=== PATIENT | female | born 2000 | race African-American/Black ===

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

== ENCOUNTER 2024-05-03 10:14 | Inpatient (IN) ==
[~2024-05-03 10:14] MED LIST: HYDROmorphone 1 MG/1 ML SYRINGE IV SLOW PU PRN; NS 0.45% 1000 ml BAG 1,000 ML IV SCH; Naloxone 0.4 mg VIAL 0.4 mg/ml 1 ml VIAL IV PRN
[2024-05-03] MEDS ORDERED: Heparin 5000 UNITS/ML 1 mL VIAL ONE (10:37)
[2024-05-03] MEDS ORDERED: Scopolamine 1 mg/72hr PATCH ONE (10:37)
[2024-05-03] MEDS ORDERED: Clindamycin 900 MG/50 **NS BAG 900 MG/50 ML BAG ONE (10:37)
[2024-05-03] MEDS ORDERED: Dexamethasone IV 4 MG/ML VIAL 1 ml VIAL ONE ×2 (10:54)
[2024-05-03] MEDS ORDERED: Lidocaine 2% PF 5 ML VIAL ONE (10:54)
[2024-05-03] MEDS ORDERED: Ondansetron 4 mg VIAL 2 MG/ML 2 ml VIAL ONE ×2 (10:54→16:44)
[2024-05-03] MEDS ORDERED: Propofol 10 MG/ML 20 ML BTL ONE (10:54)
[2024-05-03] MEDS ORDERED: fentaNYL 250 mcg/5 ml 50 MCG/ML 5 ml VIAL (250 MCG) ONE (10:54)
[2024-05-03] MEDS ORDERED: Rocuronium 50 mg VIAL 10 mg/ml 5 ml VIAL (50 mg) ONE ×2 (10:54→13:58)
[2024-05-03] MEDS ORDERED: Midazolam 2 mg/2 ml VIAL 1 mg/ml 2 ml VIAL (2 mg) ONE (10:58)
[2024-05-03 11:04] LABS: Rapid COVID-19 Molecular Undetected (Undetected)
[2024-05-03] MEDS: Scopolamine 1 mg/72hr PATCH TRANSDERM ONE (11:09)
[2024-05-03] MEDS: Acetaminophen IV 1 GM/100ML 1,000 MG/100 ML BAG IV ONE (11:10)
[2024-05-03] MEDS: Lactated Ringers 1000 ml BAG 1,000 ML IV SCH ×2 (11:10→17:10)
[2024-05-03] MEDS: Buffered Lidocaine 1% SYRIN 1 ml INTRADERM ONE (11:10)
[2024-05-03] MEDS ORDERED: Methylene Blue 1% (ANTIDOTE) 10 MG/ML 10 ML SDV VIAL IVPB ONE (11:16)
[2024-05-03] MEDS ORDERED: Bupivacaine 0.25% EPI 200,000 30 ML SDV ONE (11:16)
[2024-05-03] MEDS ORDERED: HYDROmorphone 0.5 MG/0.5 ML SYRINGE ONE ×2 (13:56→15:22)
[2024-05-03] MEDS ORDERED: Phenylephrine 40 mcg/mL 10mL (400mcg) SYRINGE ONE (14:11)
[2024-05-03] MEDS ORDERED: fentaNYL 100 mcg/2 ml 50 MCG/ML VIAL ONE (15:48)
[2024-05-03] MEDS ORDERED: HYDROmorphone 0.5 MG/0.5 ML SYRINGE IV SLOW PU PRN (16:08)
[2024-05-03] MEDS ORDERED: HYDROmorphone 1 MG/1 ML SYRINGE IV SLOW PU PRN (16:08)
[2024-05-03] MEDS: Ondansetron 4 mg VIAL 2 MG/ML 2 ml VIAL IV PRN (16:46)
[2024-05-03] MEDS: Acetaminophen IV 1 GM/100ML 1,000 MG/100 ML BAG IV PRN (18:32)
[2024-05-03] MEDS ORDERED: Ondansetron 4 mg VIAL 2 MG/ML 2 ml VIAL IV PRN (21:23)
[2024-05-03] MEDS: Metoclopramide 5 MG/ML VIAL (10 mg) IV PRN (22:05)
[2024-05-04 10:22] VITALS: BP 101/74
[2024-05-04] MEDS ORDERED: D5W 1/2 NS KCl 20 meq 1000 ml 1,000 ML IV SCH (17:00)
== END 2024-05-04 14:30 | disposition home or self-care (01) | DRG 403 ==
LOC: AA 10:14 → SSU 16:08
PROVIDERS: ADMIT Surgery; ATTEND Surgery